=== PATIENT | female | born 1960 | race Caucasian/White ===

== ENCOUNTER 2017-07-09 20:19 | Emergency (ER) | payer OTHER ==
[~2017-07-09] VITALS: Ht 162.6 cm; Wt 63.6 kg
[2017-07-09 21:28] LABS: RAPID INFLUENZA A Negative (Negative); RAPID INFLUENZA B Negative (Negative)
[2017-07-09] MEDS ORDERED: ONDANSETRON 2MG/ML, 2ML IVPush ONE (23:00)
[2017-07-09] MEDS ORDERED: KETOROLAC 30 MG/1 ML IVPush ONE (23:00)
[2017-07-09] MEDS ORDERED: SODIUM CHLORIDE FLUSH 10ML SYR IVF ONE (23:00)
[2017-07-09] MEDS ORDERED: SODIUM CHLORIDE 0.9% 1,000ML IVBOLUS ONE (23:00)
[2017-07-09] MEDS ORDERED: KETOROLAC 30 MG/1 ML ONE (23:11)
[2017-07-09] MEDS ORDERED: ONDANSETRON 2MG/ML, 2ML ONE (23:11)
[2017-07-09 23:57] VITALS: BP 128/58
== END 2017-07-09 23:59 | disposition home or self-care (01) ==
LOC: ED 23:53
DX: R07.2 Precordial pain (principal); B34.9 Viral infection, unspecified
CPT/HCPCS: 71046; 87400; 93005; 96361; 96374; 96375; 99285; J1885; J2405; J7030